=== PATIENT | female | born 1950 | race Asian ===

== ENCOUNTER → 2021-06-29 08:20 | Outpatient (CLI) | payer MEDICARE, SELFPAY ==
--- NOTE | ~2021-06-29 | CT_ITS ---
EXAMINATION: CT brain wo con DATE: 06/29/2021 08:41 INDICATION: Headache. Dizziness. TECHNIQUE: Computed tomography (CT) of the head was performed without intravenous contrast. The mA wa s adjusted according to patient size. Iterative reconstruction technique was employed. The dose-lengt h product was 599.57 mGy-cm. COMPARISON: None FINDINGS: There is no intracranial hemorrhage, acute infarction, or abnormal intracranial mass lesion . The ventricles are normal in size. The orbits are normal. The paranasal sinuses are clear. There ar e small bilateral mastoid effusions. IMPRESSION: 1. Normal brain. Reviewed, dictated and finalized at location A. IMPRESSION: 1. Normal brain.
== END ==
PROVIDERS: PCP Family Medicine; Visit Provider Physician Assistant
DX: R51.9 Headache, unspecified (principal)
CPT/HCPCS: 70450

== ENCOUNTER 2024-06-28 07:30 | Outpatient (CLI) | payer MEDICARE, SELFPAY ==
--- NOTE | ~2024-06-28 | CT_ITS ---
EXAMINATION: CT abdomen pelvis wo/w con DATE: 06/28/2024 08:29 INDICATION: Immaturity TECHNIQUE: Computed tomography (CT) of the abdomen and pelvis was performed without intravenous contr ast. CT of the abdomen and pelvis was then performed with a total of 130 mL Omnipaque-350 intravenous contrast using a double-bolus technique for simultaneous opacification of the renal parenchyma and r enal collecting system. Automated exposure control and iterative reconstruction technique were employ ed. The dose-length product was 1907.79 mGy-cm. COMPARISON: None FINDINGS: Lung bases are clear. Heart size is normal. No pericardial or pleural effusion. Aortic valve calcific ation. 1.2 cm bilobed low-attenuation likely pair of cyst versus hemangioma in segment 7 of the liver . Tiny hepatic calcific location consistent with old granulomatous disease. The common bile duct is d ilated to 10 mm. There is no intrahepatic ductal or ductal dilation. Gallbladder, spleen, pancreas a nd bilateral adrenal glands are normal. Bilateral low-attenuation renal cysts the largest on the righ t measuring 4.4 cm. Nonobstructing bilateral renal stones measuring 2 mm the mid right kidney and 1 m m lower pole of the left kidney. No ureteral stones or hydronephrosis. There are couple small regions of focally decreased parenchymal enhancement at the mid right kidney, the more caudal with associate d invagination of the renal capsule suggesting focal scarring. The more cephalad has a more nodular a ppearance measuring approximately 1.5 cm and would also include neoplasm or pyelonephritis on the dif ferential. Bladder is normal. The bilateral renal collecting systems, right ureter and all but the di stalmost left ureter well opacified with contrast with no urothelial irregularities. Fibroid uterus. 1.4 cm right adnexal cyst. Bowels including the appendix are normal. No free intraperitoneal gas or f luid. No pathologically enlarged abdominal or pelvic lymphadenopathy. There is calcified atherosclero sis of the normal caliber aorta and many of the other arteries. Severe lumbar and lower thoracic spon dylosis. Severe right and mild left hip osteoarthritis. IMPRESSION: 1. Bilateral nonobstructing nephrolithiasis. 2. A couple hypoenhancing regions in the right kidney, the smaller with suggestion of associated foca l volume loss likely scarring related to prior infection or infarction. The larger lesion measuring 1 .5 cm as a more nodular appearance and would also include neoplasm or polynephritis on the differenti al. Correlate with urinalysis and would consider 3 month follow-up pre and postcontrast MRI for furth er evaluation. 3. Common bile duct is mildly dilated to 10 mm but without intrahepatic biliary ductal dilation. Lisa elate with liver function tests and if clinically indicated this could be further evaluated with MRCP . Reviewed, dictated and finalized at location B. IMPRESSION: 1. Bilateral nonobstructing nephrolithiasis. 2. A couple hypoenhancing regions in the right kidney, the smaller with suggest ion of associated focal volume loss likely scarring related to prior infection or infarction. The larger lesion measuring 1.5 cm as a more nodular appearance and would also include neoplasm or polynephritis on the differential. Correlate with urinalysis and would consider 3 month follow-up pre and postcontrast MRI for further evaluation. 3. Common bile duct is mildly dilated to 10 mm but without intrahepatic biliary ductal dilation. Correlate with liver function tests and if clinically indicat ed this could be further evaluated with MRCP.
== END 2024-06-28 07:31 | disposition home or self-care (01) ==
PROVIDERS: PCP Family Medicine; Visit Provider Family Medicine
DX: R31.9 Hematuria, unspecified (principal); N20.0 Calculus of kidney
CPT/HCPCS: 74178; Q9967